=== PATIENT | male | born 1985 | race Caucasian/White ===

== ENCOUNTER 2025-06-05 19:19 | Emergency (ER) | payer BC, SELFPAY ==
[2025-06-05] VITALS (13 sets, daily range): BP systolic 133–144; BP diastolic 88–95; PULSE 67–74; RESP 18; TEMP 36.7; O2SAT 95–98
--- NOTE | 2025-06-05 19:30 | DI.CT_ITS ---
Exam(s) CT RENAL COLIC WO EXAM: CT RENAL COLIC WO CLINICAL HISTORY: RUQ/ R flank pain. TECHNIQUE: Imaging Protocol: Axial computed tomography images with coronal and sagittal reformatted images were created and reviewed CONTRAST MATERIAL: Intravenous: none Oral: None COMPARISON: CT RENAL COLIC WO CONTRAST from 03/28/2014 FINDINGS: VISUALIZED LUNG BASES: No nodules nor pleural effusions evident. ABDOMEN: There is no ascites. LIVER: There are no obvious focal hepatic lesions evident of this noninfused study. GALLBLADDER/BILIARY: No obvious gallbladder pathology. CBD is not dilated. PANCREAS: No evidence of pancreatic mass nor dilatation of the pancreatic duct. SPLEEN: Splenomegaly. The craniocaudal measurement of the spleen is 15.2 cm. No obvious splenic lesions evident on this non few study. ADRENALS: There are no significant adrenal masses. KIDNEYS:Left kidney unremarkable. There is a solitary nonobstructive calculus in lower pole calyx of the right kidney which measures 3 mm. This is unchanged from CT scan of 2013. There is no hydronephrosis nor hydroureter. There are no radiopaque calculi seen in the nondistended urinary bladder. No cysts nor solid renal masses evident. ABDOMINAL AORTA: Abdominal aorta is not enlarged. LYMPH NODES: There is no retroperitoneal nor paraaortic adenopathy. ABDOMINAL WALL: No evidence of significant anterior abdominal wall nor inguinal hernia. GI: There is no evidence of bowel obstruction, free air, nor abscess. PELVIS: LYMPH NODES: There is no intrapelvic nor inguinal adenopathy. GI: No evidence of appendicitis.No evidence of sigmoid diverticulitis. URINARY BLADDER: There is some uniform thickening of the urinary bladder wall. This is either related to cystitis or under distension. The pelvic ureters are not dilated REPRODUCTIVE: Prostate size normal. Seminal vesicles unremarkable. OSSEOUS: No significant osseous lesions. There is some disc space narrowing at L5-S1 level. No listhesis. No pars defects. IMPRESSION: 1. There is a solitary nonobstructive 3 mm calculus in lower pole calyx of the right kidney. This is unchanged in size and position when compared to prior CT scan of February 2014. There is no hydronephrosis no hydroureter. There are no radiopaque calculi seen in the urinary bladder. 2. The wall the urinary bladder appears somewhat uniformly thickened. This is either related to cystitis or under distension. 3. Mild splenomegaly noted. Craniocaudal length of the spleen is 15.2 cm. There is no abnormal lymphadenopathy in the abdomen and pelvis. Preliminary virtual Radiology report was reviewed RADIATION DOSE DELIVERED: 559.59mGy.cm Total DLP DATA REPOSITORY: All CT scans at this facility are submitted to the National Radiology Data Registry (NRDR) Dose Index Registry (DIR) with the [employer] ([employer]). RADIATION OPTIMIZATION: All CT scans at this facility use at least one of these dose optimization techniques: automated exposure control; mA and/or kV adjustment per patient size (includes targeted exams where dose is matched to clinical indication); or iterative reconstruction.
[2025-06-05 19:52] LABS: Abs Immature Grans 0.05 10^3/uL (0.0-0.06); HCT 45.6 % (40.0-50.0); HGB 16.2 g/dL (13.5-17.5); Immature Grans % 0.4 %; MCH 28.5 pg (27.0-33.0); MCHC 35.5 % (32.0-36.0); MCV 80 fL (80-95); MPV 9.6 fL (8.0-11.0); Platelet Count 270 10^3/uL (130-400); RBC 5.69 10^6/uL (4.36-5.78); RDW 11.9 % (11.8-14.1); RDW-SD 33.9 fL; WBC 11.71 10^3/uL (4.4-10.8)
[2025-06-05] MEDS: Normal Saline 1,000 ML 1000 ML IV (19:57)
[2025-06-05] MEDS: Acetaminophen 500 MG TAB 1000 MG PO (19:57)
[2025-06-05] MEDS: Ketorolac 15 MG/ML VIAL IVP (19:57)
[2025-06-05 20:02] LABS: Glucose Negative (Negative)
[2025-06-05 20:12] LABS: ALT 29 U/L (16-63); AST 17 U/L (15-37); Albumin 4.4 g/dL (3.4-5.0); Alkaline Phosphatase 120 U/L (46-116); Anion Gap 8.5 mmol/L (3-11); BUN 15 mg/dL (7-18); Bilirubin, Total 0.6 mg/dL (0.2-1.0); CO2 29.5 mmol/L (21.0-32.0); Calcium 9.0 mg/dL (8.5-10.1); Chloride 103 mmol/L (98-107); Estimated GFR 79.88 (mL/min/1.73m2); Glucose 112 mg/dL (74-106); Lipase 41 U/L (<78); Potassium 3.8 mmol/L (3.5-5.1); Sodium 141 mmol/L (136-145); Total Protein 7.9 g/dL (6.4-8.2)
--- NOTE | 2025-06-05 20:42 | W.ED.GENAD ---
Discharge Plan Disposition Patient Disposition: Home Condition: Stable Discharge Details Clinical Impression: Abdominal pain of unknown cause Primary Care Provider: Atif Ying ED Provider: Lui Knowles Home Meds and New Rx's Prescriptions: New ketorolac 10 mg tablet 10 mg PO QID PRNQty: 20 0RF Rx Instructions: maximum total duration of 5 days from all oral, intranasal, or parenteral formulations Continued citalopram [Celexa] 10 MG tablet 10 mg PO DAILY Loratadine-D 1 EACH tablet extended release 24 hr 1 ea PO DAILY tamsulosin 0.4 MG capsule 0.4 mg PO DAILY@0830 Qty: 20 0RF oxycodone-acetaminophen [Percocet] 1 EACH tablet 1 ea PO Q6H PRN Qty: 20 0RF ibuprofen 800 MG tablet 800 mg PO TID PRN Qty: 30 0RF fluticasone propion-salmeterol 100-50 mcg/dose blister with device 1 inh INHALATION DAILY Patient Comments: INHALE 1 PUFF BY MOUTH EVERY 12 HOURS DIRECTED albuterol sulfate 0.63 mg/3 mL solution for nebulization 0.63 mg inhalation PRN Patient Comments: USE 1 VIAL VIA NEBULIZER FOUR TIMES DAILY NEEDED FOR SHORTNESS OF BREATH albuterol sulfate 90 mcg/actuation HFA aerosol inhaler 2 puff INHALATION PRN Patient Comments: INHALE 1 PUFF BY MOUTH EVERY 4 HOURS NEEDED FOR SHORTNESS OF BREATH Discharge Instructions Instructions: Ketorolac (Systemic), Abdominal Pain, Adult ED Additional Instructions: You were seen in the emergency department for the abdominal pain of unknown cause, there is no evidence of any obstructive uropathy, your urine shows no signs of infection, your blood work is otherwise unremarkable, this could be gastritis as it came on while you are eating, please take famotidine twice daily for 2-3 weeks for trial of relief. Take the prescribed Toradol for the next 5 days and take Tylenol as needed. Follow-up with your primary care provider and return for any emergent concerns. Referrals: Atif Ying [Primary Care Provider, Medicine] Discharge Data Discharge Date/Time-TO BE ENTERED AT DEPARTURE: 06/05/25 21:59 HPI General Date/Time Provider Initiated Documentation: 06/05/25 19:25. HPI Narrative: 39 year-old male presents to ED today by POV/ambulating with a chief complaint of abdominal pain with onset 30 minutes ago almost immediately after eating. Quality described as similar to prior kidney stone episodes, no radiation to decreased urine output, hematuria, fever, nausea, vomiting, cough, shortness of breath, chest pain. Severity is described as moderate. Palliating factors include nothing specific attempted. Provoking factors include nothing specific. Patient not anticoagulated. Related Data Home Medications ?Medication ?Instructions ?Recorded ?Confirmed citalopram 10 mg tablet (Celexa) 10 mg PO DAILY 03/28/14 06/05/25 ibuprofen 800 mg tablet 800 mg PO TID PRN ##30 03/28/14 06/05/25 loratadine-pseudoephedrine ER 10 1 ea PO DAILY 03/28/14 06/05/25 mg-240 mg tablet,extended [id number] (Loratadine-D) oxycodone-acetaminophen 5 mg-325 1 ea PO Q6H PRN ##20 03/28/14 06/05/25 mg tablet (Percocet) tamsulosin 0.4 mg capsule 0.4 mg PO DAILY@0830 ##20 03/28/14 06/05/25 albuterol sulfate 0.63 mg/3 mL 0.63 mg inhalation PRN 06/05/25 06/05/25 solution for nebulization albuterol sulfate 90 mcg/actuation 2 puff inhalation PRN 06/05/25 06/05/25 aerosol inhaler fluticasone 100 mcg-salmeterol 50 1 inh inhalation DAILY 06/05/25 06/05/25 mcg/dose blistr powdr for inhalation ketorolac 10 mg tablet 10 mg PO QID PRN #20 tabs 06/05/25 Previous Rx's ?Medication ?Instructions ?Recorded ibuprofen 800 mg tablet 800 mg PO TID PRN ##30 03/28/14 oxycodone-acetaminophen 5 mg-325 1 ea PO Q6H PRN ##20 03/28/14 mg tablet (Percocet) tamsulosin 0.4 mg capsule 0.4 mg PO DAILY@0830 ##20 03/28/14 ketorolac 10 mg tablet 10 mg PO QID PRN #20 tabs 06/05/25 Allergies Allergy/AdvReac Type Severity Reaction Status Date / Time No Known Allergies Allergy Unverified 06/05/25 19:26 General Stated Complaint: Abd Prob DAT: 3 Review of Systems All systems reviewed & are unremarkable except as noted in HPI and below Exam Narrative Exam Narrative: GENERAL APPEARANCE: Well-nourished, non-toxic, awake and alert, atraumatic, no acute distress. SKIN: Warm, pink, dry, intact, without rashes/lesions/ulcerations. HEAD: Normocephalic, atraumatic, normal hair distribution for gender/age. EYES: Normal conjunctiva, no exudates on lids/lashes. ENT: Nares patent, no circumoral cyanosis, no facial swelling NECK: Supple, trachea midline, painless cervical ROM. LUNGS/CHEST: Lungs CTA bilaterally, non-labored respirations, normal A/P diameter, symmetrical expansion, no chest wall deformity HEART (CV/PV): Regular rate and rhythm without murmur, no peripheral edema, no JVD. ABDOMEN: Soft, non-distended, no guarding, no focal tenderness or peritoneal signs. MSK: Normal ROM, no swelling/deformity to bilateral UEs or LEs, moving all extremities without weakness, no cyanosis, spine midline without tenderness, normal curvature. NEURO: Mental Status AAOx4 - alert to person, place, time, events No facial droop, no forehead involvement. Motor: No focal weakness - strength 5/5 in bilateral UEs and LEs, proximal and distal, symmetric. Sensory: sensation intact to light touch globally. Gait normal: patient ambulated without ataxia into ED room. PSYCH: euthymic, cooperative, pleasant, appropriate speech Course Vital Signs Vital signs: Vital Signs Temperature 36.7 C 06/05/25 19:22 Pulse 74 06/05/25 19:22 Respiratory Rate 18 06/05/25 19:22 Blood Pressure 144/95 H 06/05/25 19:22 Pulse Oximetry 98 06/05/25 19:22 Temperature 36.7 C 06/05/25 19:29 Temperature Source Oral 06/05/25 19:29 Pulse 74 06/05/25 19:29 Respiratory Rate 18 06/05/25 19:29 Blood Pressure 144/95 H 06/05/25 19:29 Blood Pressure Position Sitting 06/05/25 19:29 Pulse Oximetry 98 06/05/25 19:29 Oxygen Delivery Method Room Air 06/05/25 19:29 Oxygen Flow Rate 0 06/05/25 19:22 Pain Level 4 06/05/25 19:22 Comment patient reports that pain is spasmatic goes from a -05/0806/05/25 19:22 Lab/Test Results Lab/Test Results: Laboratory Tests Range/Units 06/05/25 06/05/25 19:35 19:44 WBC (4.4-10.8) 10^3/uL 11.71 H RBC (4.36-5.78) 10^6/uL 5.69 Hgb (13.5-17.5) g/dL 16.2 Hct (40.0-50.0) % 45.6 MCV (80-95) fL 80 MCH (27.0-33.0) pg 28.5 MCHC (32.0-36.0) % 35.5 RDW (11.8-14.1) % 11.9 Plt Count (130-400) 10^3/uL 270 MPV (8.0-11.0) fL 9.6 Immature Gran % % 0.4 Neutrophils % % 53.4 Lymphocytes % % 32.7 Monocytes % % 7.9 Eosinophils % % 4.7 Basophils % % 0.9 Nucleated RBC % (0.0-0.3) % 0.0 Absolute Neutrophils (1.2-6.7) 10^3/uL 6.25 Absolute Lymphocytes (1.2-3.4) 10^3/uL 3.83 H Absolute Monocytes (0.1-0.8) 10^3/uL 0.93 H Absolute Eosinophils (0.0-0.7) 10^3/uL 0.55 Absolute Basophils (0.0-0.2) 10^3/uL 0.11 Sodium (136-145) mmol/L 141 Potassium (3.5-5.1) mmol/L 3.8 Chloride (98-107) mmol/L 103 Carbon Dioxide (21.0-32.0) mmol/L 29.5 Anion Gap (3-11) mmol/L 8.5 BUN (7-18) mg/dL 15 Creatinine (0.70-1.30) mg/dL 1.2 Est GFR (CKD-EPI 2020) (mL/min/1.73m2) 79.88 Glucose (74-106) mg/dL 112 H Calcium (8.5-10.1) mg/dL 9.0 Total Bilirubin (0.2-1.0) mg/dL 0.6 AST (15-37) U/L 17 ALT (16-63) U/L 29 Alkaline Phosphatase (46-116) U/L 120 H Total Protein (6.4-8.2) g/dL 7.9 Albumin (3.4-5.0) g/dL 4.4 Lipase (<78) U/L 41 Urine Color (Yellow) Yellow Urine Clarity (Clear) Clear Urine pH (5-8) 6.0 Ur Specific Hiller (1.005-1.025) 1.025 Urine Protein (Neg-Trace) mg/dL Negative Urine Ketones (Negative) mg/dL Trace H Urine Blood (Negative) Negative Urine Nitrite (Negative) Negative Urine Bilirubin (Negative) Negative Urine Urobilinogen (Up to 0.2) mg/dL 0.2 Ur Leukocyte Esterase (Negative) Negative Urine Glucose (Negative) mg/dL Negative Medical Decision Making This dictation utilizes [id number] dictation software and may contain unedited grammatical errors. 39 year-old male presents to ED today by POV/ambulating with a chief complaint of abdominal pain with onset 30 minutes ago. Quality described as similar to prior kidney stone episodes, no radiation to decreased urine output, hematuria, fever, nausea, vomiting, cough, shortness of breath, chest pain. Severity is described as moderate. Palliating factors include nothing specific attempted. Provoking factors include nothing specific. Patients' medical history: Kidney stones. Family and social history: Noncontributory. Pertinent exam findings / vital signs include no focal tenderness or peritoneal signs, benign cardiopulmonary exam, nontoxic and afebrile, no CVA tenderness percussion bilaterally. Differential / pathologies of concern include renal stone, gastritis, gastroenteritis, unlikely surgical pathology. Diagnostic studies of: - CBC, CMP, lipase, UA, CT renal colic without. - CBC shows a mild nonspecific leukocytosis of 11.7 - CMP is unremarkable - Lipase is negative - UA shows no signs of hematuria/proteinuria/bacteria - CT shows no acute findings Interventions of: - Given IV ketorolac, 1 L IVF NS, 1 g p.o. Tylenol, Rx for Toradol. ED Course/Assessment/Plan: 39-year-old male presents with right-sided abdominal pain he feels could be a kidney stone, there is no evidence of this on laboratory, urinalysis or CT workup. It came on while he was eating almost immediately counseled that it could be gastritis and he trial of famotidine twice daily for 2 weeks, I did give him ketorolac by prescription to see if this was just related to gas pains or other nonemergent abdominal pain, strict return criteria for any intractable vomiting or other emergent concerns. Findings not consistent with acute abdominal surgical pathology, severe infection, obstructive uropathy. Disposition of abdominal pain of unknown cause. Patient verbalized understanding of the plan and return to ED criteria and engaged in shared decision making. Medical Records Medical records reviewed: Yes I reviewed the patient's medical records. Imaging Data Radiologic Study: Attestation: I personally reviewed and interpreted this imaging study as follows: Imaging: CT Scan Radiologist's impression: Exam: CT Abdomen And Pelvis Without Contrast Exam date and time: 06/05/2025 7:49 PM Age: 39 years old Clinical indication: Abdominal pain; Right upper quadrant (ruq); Ruq and R flank pain TECHNIQUE: Imaging protocol: Computed tomography of the abdomen and pelvis without contrast. COMPARISON: US RENAL 12/26/2020 11:04 AM FINDINGS: Liver: Normal. No mass. Gallbladder and biliary ducts: Normal. No calcified stones. No ductal dilation. Pancreas: Normal. No ductal dilation. Spleen: Normal. No splenomegaly. Adrenal glands: Normal. No mass. Kidneys and ureters: Nonobstructing right renal calculus. No hydronephrosis or hydroureter identified. Stomach and bowel: The stomach is distended with food material. Appendix: The appendix is well seen, within normal limits. Intraperitoneal space: Unremarkable. No free air. No significant fluid collection. Vasculature: Unremarkable. No abdominal aortic aneurysm. Lymph nodes: Unremarkable. No enlarged lymph nodes. Urinary bladder: The bladder is not well distended. The bladder is not well distended. Reproductive: Unremarkable as visualized. Bones/joints: Unremarkable. No acute fracture. Soft tissues: Unremarkable. Other findings: Respiratory motion noted. IMPRESSION: Nonobstructing right renal calculus. Dictated and Authenticated by: Kristina Douglas MD. EXAM: CT RENAL COLIC WO CLINICAL HISTORY: RUQ/ R flank pain. TECHNIQUE: Imaging Protocol: Axial computed tomography images with coronal and sagittal reformatted images were created and reviewed CONTRAST MATERIAL: Intravenous: none Oral: None COMPARISON: CT RENAL COLIC WO CONTRAST from 03/28/2014 FINDINGS: VISUALIZED LUNG BASES: No nodules nor pleural effusions evident. ABDOMEN: There is no ascites. LIVER: There are no obvious focal hepatic lesions evident of this noninfused study. GALLBLADDER/BILIARY: No obvious gallbladder pathology. CBD is not dilated. PANCREAS: No evidence of pancreatic mass nor dilatation of the pancreatic duct. SPLEEN: Splenomegaly. The craniocaudal measurement of the spleen is 15.2 cm. No obvious splenic lesions evident on this non few study. ADRENALS: There are no significant adrenal masses. KIDNEYS:Left kidney unremarkable. There is a solitary nonobstructive calculus in lower pole calyx of the right kidney which measures 3 mm. This is unchanged from CT scan of 2013. There is no hydronephrosis nor hydroureter. There are no radiopaque calculi seen in the nondistended urinary bladder. No cysts nor solid renal masses evident. ABDOMINAL AORTA: Abdominal aorta is not enlarged. LYMPH NODES: There is no retroperitoneal nor paraaortic adenopathy. ABDOMINAL WALL: No evidence of significant anterior abdominal wall nor inguinal hernia. GI: There is no evidence of bowel obstruction, free air, nor abscess. PELVIS: LYMPH NODES: There is no intrapelvic nor inguinal adenopathy. GI: No evidence of appendicitis.No evidence of sigmoid diverticulitis. URINARY BLADDER: There is some uniform thickening of the urinary bladder wall. This is either related to cystitis or under distension. The pelvic ureters are not dilated REPRODUCTIVE: Prostate size normal. Seminal vesicles unremarkable. OSSEOUS: No significant osseous lesions. There is some disc space narrowing at L5-S1 level. No listhesis. No pars defects. IMPRESSION: 1. There is a solitary nonobstructive 3 mm calculus in lower pole calyx of the right kidney. This is unchanged in size and position when compared to prior CT scan of February 2014. There is no hydronephrosis no hydroureter. There are no radiopaque calculi seen in the urinary bladder. 2. The wall the urinary bladder appears somewhat uniformly thickened. This is either related to cystitis or under distension. 3. Mild splenomegaly noted. Craniocaudal length of the spleen is 15.2 cm. There is no abnormal lymphadenopathy in the abdomen and pelvis. Preliminary virtual Radiology report was reviewed Lab Data Lab results reviewed: Yes I reviewed the patient's lab results. Labs: Laboratory Tests Range/Units 06/05/25 06/05/25 19:35 19:44 WBC (4.4-10.8) 10^3/uL 11.71 H RBC (4.36-5.78) 10^6/uL 5.69 Hgb (13.5-17.5) g/dL 16.2 Hct (40.0-50.0) % 45.6 MCV (80-95) fL 80 MCH (27.0-33.0) pg 28.5 MCHC (32.0-36.0) % 35.5 RDW (11.8-14.1) % 11.9 Plt Count (130-400) 10^3/uL 270 MPV (8.0-11.0) fL 9.6 Immature Gran % % 0.4 Neutrophils % % 53.4 Lymphocytes % % 32.7 Monocytes % % 7.9 Eosinophils % % 4.7 Basophils % % 0.9 Nucleated RBC % (0.0-0.3) % 0.0 Absolute Neutrophils (1.2-6.7) 10^3/uL 6.25 Absolute Lymphocytes (1.2-3.4) 10^3/uL 3.83 H Absolute Monocytes (0.1-0.8) 10^3/uL 0.93 H Absolute Eosinophils (0.0-0.7) 10^3/uL 0.55 Absolute Basophils (0.0-0.2) 10^3/uL 0.11 Sodium (136-145) mmol/L 141 Potassium (3.5-5.1) mmol/L 3.8 Chloride (98-107) mmol/L 103 Carbon Dioxide (21.0-32.0) mmol/L 29.5 Anion Gap (3-11) mmol/L 8.5 BUN (7-18) mg/dL 15 Creatinine (0.70-1.30) mg/dL 1.2 Est GFR (CKD-EPI 2020) (mL/min/1.73m2) 79.88 Glucose (74-106) mg/dL 112 H Calcium (8.5-10.1) mg/dL 9.0 Total Bilirubin (0.2-1.0) mg/dL 0.6 AST (15-37) U/L 17 ALT (16-63) U/L 29 Alkaline Phosphatase (46-116) U/L 120 H Total Protein (6.4-8.2) g/dL 7.9 Albumin (3.4-5.0) g/dL 4.4 Lipase (<78) U/L 41 Urine Color (Yellow) Yellow Urine Clarity (Clear) Clear Urine pH (5-8) 6.0 Ur Specific Hiller (1.005-1.025) 1.025 Urine Protein (Neg-Trace) mg/dL Negative Urine Ketones (Negative) mg/dL Trace H Urine Blood (Negative) Negative Urine Nitrite (Negative) Negative Urine Bilirubin (Negative) Negative Urine Urobilinogen (Up to 0.2) mg/dL 0.2 Ur Leukocyte Esterase (Negative) Negative Urine Glucose (Negative) mg/dL Negative PFSH All Active Problems (Updated 06/05/25 @ 21:47 by KEMAR Monroy) Abdominal pain of unknown cause (Acute) Social History Smoking/Tobacco Use Status: Never Smoking risk assessment performed?: Yes Alcohol Intake: current Alcohol Intake frequency: a few times a month Alcohol type: beer Drug use: Never Substance use type: does not use Housing: house Do you feel safe at home: Yes Do you feel safe in your relationship?: Yes PAWSS Have you Been Recently Intoxicated or Drunk Within the Last 30 days?: No Have you Ever Experienced Previous Episodes of Alcohol Withdrawal?: No Have you ever Experienced Withdrawal Seizures?: No Have you ever Experienced Delirium Tremens(DT)s?: No Have you ever undergone Alcohol Rehabilitation Treatment (i.e, inpt ot outpatient treatment programs)?: No Have you ever Experienced Blackouts?: No Have you ever Combined Alcohol with other Downers within the last 90 days?: No Have you ever Combined Alcohol with any other Substance of Abuse during the last 90 days?: No Positive Blood Alcohol level on Presentation? [PCS.BAL]: No Evidence of Increased Autonomic Activity (i.e. HR>120, tremor, sweating, agitation, nausea)?: No Result: 0
--- NOTE | 2025-06-05 21:11 | DI.VRAD_ITS ---
PROCEDURE INFORMATION: Exam: CT Abdomen And Pelvis Without Contrast Exam date and time: 06/05/2025 7:49 PM Age: 39 years old Clinical indication: Abdominal pain; Right upper quadrant (ruq); Ruq and R flank pain TECHNIQUE: Imaging protocol: Computed tomography of the abdomen and pelvis without contrast. COMPARISON: US RENAL 12/26/2020 11:04 AM FINDINGS: Liver: Normal. No mass. Gallbladder and biliary ducts: Normal. No calcified stones. No ductal dilation. Pancreas: Normal. No ductal dilation. Spleen: Normal. No splenomegaly. Adrenal glands: Normal. No mass. Kidneys and ureters: Nonobstructing right renal calculus. No hydronephrosis or hydroureter identified. Stomach and bowel: The stomach is distended with food material. Appendix: The appendix is well seen, within normal limits. Intraperitoneal space: Unremarkable. No free air. No significant fluid collection. Vasculature: Unremarkable. No abdominal aortic aneurysm. Lymph nodes: Unremarkable. No enlarged lymph nodes. Urinary bladder: The bladder is not well distended. The bladder is not well distended. Reproductive: Unremarkable as visualized. Bones/joints: Unremarkable. No acute fracture. Soft tissues: Unremarkable. Other findings: Respiratory motion noted. IMPRESSION: Nonobstructing right renal calculus. Dictated and Authenticated by: Kristina Douglas MD. Orderin Benson Poe MD
== END 2025-06-05 21:59 | disposition home or self-care (01) ==
PROVIDERS: Emergency Provider Physician Assistant; PCP Family Medicine
DX: R10.9 Unspecified abdominal pain (principal); Z87.442 Personal history of urinary calculi
CPT/HCPCS: 36415; 80053; 83690; 96361; 96374; 99284; 74176; 81003; 85025; J1885